=== PATIENT | female | born 1975 | race Caucasian/White ===

== ENCOUNTER 2017-01-02 12:06 | Emergency (ER) | payer OTHER ==
[2017-01-02 13:35] LABS: BILIRUBIN NEGATIVE (NEGATIVE); BLOOD 3+ Ery/uL (NEGATIVE); CLARITY CLEAR (CLEAR); COLOR YELLOW (YELLOW); EOSINOPHIL 1.9 % (0-5); GLUCOSE (U) NORMAL (NORMAL); HCT 33.2 % (37.0-47.0); HGB 10.4 g/dl (12.5-16.0); KETONE (U) NEGATIVE (NEGATIVE); LEUKOCYTES 1+ Leu/uL (NEGATIVE); LYMPHOCYTE 21.8 % (15-48); MCHC 31.3 g/dL (32.0-36.0); MCV 70.2 fL (78.0-100.0); MONOCYTE 10.2 % (0-12); MPV 10.6 fL (6.0-9.5); NEUTROPHIL 65.1 % (41-80); NITRITE NEGATIVE (NEGATIVE); PLT 364 K/uL (150-400); PROTEIN 2+ mg/dL (NEGATIVE); RBC 4.73 M/uL (4.20-5.40); RDW 17.2 % (11.5-14.0); WBC 7.8 K/uL (4.0-10.5); pH 5.5 (5.0-9.0)
[2017-01-02 13:51] LABS: BACTERIA 1+; URINARY RBC TNTC
== END 2017-01-02 15:10 | disposition home or self-care (01) ==
LOC: FER 12:06
PROVIDERS: Physician Assistant Medical
DX: N93.8 Other specified abnormal uterine and vaginal bleeding (principal); F32.9 Major depressive disorder, single episode, unspecified; F90.9 Attention-deficit hyperactivity disorder, unspecified type; Z98.51 Tubal ligation status; Z98.84 Bariatric surgery status; Z86.14 Personal history of Methicillin resistant Staphylococcus aureus infection
CPT/HCPCS: 36415; 76830; 81001; 85025; 87088; 87210